=== PATIENT | male | born 1985 | race Caucasian/White ===

== ENCOUNTER 2017-04-25 22:10 | Emergency (ER) | payer OTHER ==
[~2017-04-25] VITALS: Ht 190.5 cm; Wt 172.4 kg
[2017-04-25] MEDS ORDERED: RX-ALBUTEROL INHALER (PROAIR) 8 GM IH STA (23:46)
[2017-04-25] MEDS ORDERED: RX-DOXYCYCLINE 100 MG (VIBRAMYCIN) TAB PPK#2 PO STA (23:46)
[2017-04-26] MEDS ORDERED: cefTRIAXone 1 GM (ROCEPHIN) VIAL IM ONE
[2017-04-26] MEDS ORDERED: LIDOCAINE 1% INJ 20 ML (XYLOCAINE) VIAL INJ ONE
[2017-04-26] MEDS ORDERED: predniSONE 20 MG TAB PO ONE
[2017-04-26] MEDS ORDERED: PRD20T PO (00:02)
[2017-04-26] MEDS ORDERED: MINO100C2 PO (00:02)
--- NOTE | 2017-04-26 00:13 | ED Cough/URI ---
General Chief Complaint: Cough/Cold/Flu Symptoms Stated Complaint: TROUBLE BREATHING;COUGH Nursing Triage Note: C/o cough, chills x 3 weeks Source: patient Exam Limitations: no limitations History of Present Illness Time seen by provider: 23:20 Initial Comments PATIENT PRESENTS TO THE ED WITH C/O COUGH, CONGESTION, NASAL CONGESTION, GREEN NASAL DRAINAGE, AND MALAISE. DOES HAVE OCCASIONAL SOA AND WHEEZING. STATES WHEN HE WAS YOUNGER HE DID HAVE ASTHMA, BUT HAS NOT HAD TO USE AN INHALER FOR " A REALLY LONG TIME." Timing/Duration: constant, other (3 WK ONSET) Severity/Quality: productive cough (ALTERNATES CLEAR AND GREEN ) Prior Episodes/Possible Cause: no prior episodes Modifying Factors: Worse With Coughing Allergies and Home Medications Allergies Coded Allergies: No Known Drug Allergies (Unverified , 04/25/17) Home Medications Minocycline HCl 100 Mg Capsule, 100 MG PO BID, #14 Ref 0 Prescribed by: ANGLE GARSIA on 04/26/17 0002 Prednisone 20 Mg Tab, 40 MG PO DAILY, #10 Ref 0 Prescribed by: ANGLE GARSIA on 04/26/17 0002 Constitutional: No chills, No fever, malaise EENTM: see HPI, nose congestion, No ear discharge, No ear pain, No mouth pain, No throat pain, No throat swelling Respiratory: cough, No dyspnea on exertion, No orthopnea, phlegm, short of breath, No stridor, wheezing Cardiovascular: no symptoms reported Gastrointestinal: no symptoms reported Genitourinary: no symptoms reported Musculoskeletal: other (GENERALIZED BODYACHES) Skin: no symptoms reported Psychiatric/Neurological: No Symptoms Reported All Other Systems Reviewed Negative Unless Noted: Yes (Negative excepted noted.) Past Qinotlb-Pvjoki-Rmludb Hx Patient Social History Alcohol Use: Occasionally Uses Alcohol Beverage of Choice: Beer Recreational Drug Use: No Smoking Status: Current Everyday Smoker Type Used: Cigarettes 2nd Hand Smoke Exposure: No Recent Foreign Travel: No Contact w/Someone Who Travel: No Recent Infectious Disease Expo: No Recent Hopitalizations: No Physical Abuse: No Sexual Abuse: No Mistreated: No Fear: No Immunizations Up To Date Tetanus Booster (TDap): Less than 5yrs Seasonal Allergies Seasonal Allergies: No Surgeries History of Surgeries: No Respiratory History of Respiratory Disorde: Yes Respiratory Disorders: Asthma Cardiovascular History of Cardiac Disorders: Yes Cardiac Disorders: High Cholesterol, Hypertension Neurological History of Neurological Disord: No Reproductive System Sexually Transmitted Disease: No HIV/AIDS: No Genitourinary History of Genitourinary Disor: No Gastrointestinal History of Gastrointestinal Di: No Musculoskeletal History of Musculoskeletal Dis: No Endocrine History of Endocrine Disorders: Yes Endocrine Disorders: Hypothyroidsim, Diabetes, Non-Insulin dep HEENT History of HEENT Disorders: No Cancer History of Cancer: No Psychosocial Suicide Risk Score: 1 Integumentary History of Skin or Integumenta: No Reviewed Nursing Assessment Reviewed/Agree w Nursing PMH: Yes Family Medical History Significant Family History: No Pertinent Family Hx Physical Exam Vital Signs Vital Sign - Last 12Hours 04/25/17 22:30 Temp 98.0 Pulse 112 Resp 20 B/P (MAP) 154/ Pulse Ox 95 O2 Delivery Room Air Capillary Refill : Less Than 3 Seconds General Appearance: WD/WN, no apparent distress HEENT: PERRL/EOMI, pharynx normal Neck: non-tender, full range of motion, supple, normal inspection Respiratory: no respiratory distress, no accessory muscle use, decreased breath sounds, wheezing (FAINT EXPIRATORY WHEEZING BILATERAL BASES) Cardiovascular: normal peripheral pulses, regular rate, rhythm, no murmur Gastrointestinal: normal bowel sounds, non tender, soft, no organomegaly Extremities: normal capillary refill Neurologic/Psychiatric: alert, normal mood/affect, oriented x 3 Skin: normal color, warm/dry Progress/Results/Core Measures Suspected Sepsis Recent Fever Within 48 Hours: No Infection Criteria Present: Suspected New Infection New/Unexplained Altered Menta: No Sepsis Screen: No Definite Risk Sepsis Diagnosis: SIRS Temperature:98.0 Pulse: 112 Respiratory Rate: 20 Blood Pressure 154 / Mean: Results/Orders My Orders Orders - ANGLE GARSIA Chest Pa/Lat (2 View) (04/25/17 23:20) Ceftriaxone Injection (Rocephin Injectio (04/26/17 00:00) Lidocaine 1% Injection (Xylocaine 1% Inj (04/26/17 00:00) Rx-Doxycycline Tablet (Rx-Vibramycin Tab (04/25/17 23:46) Prednisone Tablet (Deltasone Tablet) (04/26/17 00:00) Rx-Albuterol Inhaler (Rx-Proair) (04/25/17 23:46) Medications Given in ED Current Medications Medications Dose Ordered Sig/Arina Route Start Time Stop Time Status Last Admin Dose Admin Ceftriaxone Sodium 1,000 mg ONCE ONCE IM 04/26/17 00:00 04/26/17 00:01 DC 04/26/17 00:04 1,000 MG Lidocaine HCl 2.1 ml ONCE ONCE INJ 04/26/17 00:00 04/26/17 00:01 DC 04/26/17 00:04 2.1 ML Prednisone 40 mg ONCE ONCE PO 04/26/17 00:00 04/26/17 00:01 DC 04/26/17 00:04 40 MG Vital Signs/I&O Vital Sign - Last 12Hours 04/25/17 04/26/17 22:30 00:20 Temp 98.0 Pulse 112 88 Resp 20 18 B/P (MAP) 154/ Pulse Ox 95 96 O2 Delivery Room Air Room Air Capillary Refill : Less Than 3 Seconds Diagnostic Imaging Diagonstic Imaging: Xray Plain Films/CT/US/NM/MRI: chest Comments no acute cardiopulmonary findings. Reviewed: Reviewed by Me (reviewed with Dr. Leigh) Departure Communication (Admissions) Progress Notes Diagnostic findings discussed with the patient. Plan for discharge to home with oral prednisone, doxycycline, and an albuterol inhaler. Impression Impression: Primary Impression: Acute bronchitis Qualified Codes: J20.9 - Acute bronchitis, unspecified Disposition: HOME, SELF-CARE Condition: Improved Departure-Patient Inst. Decision time for Depature: 23:55 Patient Instructions: Acute Bronchitis, Adult (DC) Add. Discharge Instructions: All discharge instructions reviewed with patient and/or family. Voiced understanding. MEDICATIONS DIRECTED. TYLENOL ES OVER THE COUNTER DIRECTED FOR PAIN OR FEVER. MOTRIN 800 MG BY MOUTH EVERY 8 HOUR NEEDED FOR PAIN OR FEVER. COOL HUMIDIFIER. SALINE NASAL SPRAY AND AFRIN NASAL SPRAY OVER THE COUNTER DIRECTED FOR NASAL CONGESTION. [facility] IF NO IMPROVEMENT IN SYMPTOMS. RETURN TO THE EMERGENCY DEPARTMENT FOR WORSENED SYMPTOMS OR ANY OTHER CONCERNS. Scripts Prednisone (Prednisone) 20 Mg Tab 40 MG PO DAILY, #10 TAB 0 Refills Prov: ANGLE GARSIA 04/26/17 Minocycline HCl (Minocycline HCl) 100 Mg Capsule 100 MG PO BID, #14 CAP 0 Refills Prov: ANGLE GARSIA 04/26/17 Work/School Note: Local Medical Staff Listing ANGLE GARSIA Apr 26, 2017 00:13
[2017-04-26 00:20] VITALS: BP 142/89
--- NOTE | 2017-04-26 06:32 | Diagnostic Imaging Report ---
Indication: Shortness of breath PA and lateral chest There is a hiatal hernia. Heart size and pulmonary vascular normal. Lungs are clear. There are no effusions or pneumothoraces. Impression: Hiatal hernia. No acute abnormalities in the chest. Dictated by: Dictated on workstation # [id number]
== END 2017-04-26 00:20 | disposition home or self-care (01) ==
LOC: ER 22:13
DX: J20.9 Acute bronchitis, unspecified (principal); E03.9 Hypothyroidism, unspecified; E11.9 Type 2 diabetes mellitus without complications; E78.00 Pure hypercholesterolemia, unspecified; I10 Essential (primary) hypertension; J45.909 Unspecified asthma, uncomplicated; F17.210 Nicotine dependence, cigarettes, uncomplicated
CPT/HCPCS: 71046; 99284

== ENCOUNTER 2020-03-24 17:03 | Emergency (ER) | payer SELFPAY ==
[~2020-03-24] VITALS: Ht 187 cm; Wt 158.0 kg
[~2020-03-24 17:03] MED LIST: MINO100C5 PO; PRD20T PO
[2020-03-24 17:50] VITALS: BP 160/104
--- NOTE | 2020-03-24 18:07 | ED EENT ---
History of Present Illness General Chief Complaint: Ear Problems Stated Complaint: R EAR INFECTION Nursing Triage Note: Pt reports R ear pain x5 days. Pt sees [facility] for treatment and was placed on antibiotic drops. Pt reports increased pain and swelling, stating drops aren't reaching ear. Source: patient Exam Limitations: no limitations History of Present Illness Date Seen by Provider: Mar 24, 2020 Time Seen by Provider: 18:01 Initial Comments Patient presents ER by private conveyance with chief complaint of swelling pain and mild discharge from his right ear canal. He was seen a couple days ago and this started at the [facility] and started on some drops but no orals. He says he does n ot feel the drops are making it any better. He's not having any fevers nausea vomiting chills or pain in his jaw or teeth. Last dose of Aleve was 12 hours prior. Allergies and Home Medications Allergies Coded Allergies: No Known Drug Allergies (Unverified , 04/25/17) Home Medications Minocycline HCl 100 Mg Capsule, 100 MG PO BID Prescribed by: ANGLE GARSIA on 04/26/17 0002 Prednisone 20 Mg Tab, 40 MG PO DAILY Prescribed by: ANGLE GARSIA on 04/26/17 0002 Patient Home Medication List Home Medication List Reviewed: Yes Review of Systems Review of Systems Constitutional: No chills, No diaphoresis Eyes: Denies Blindness, Denies Blurred Vision Ears: Denies Dizziness, Denies Pain Nose: denies clots, denies congestion Mouth: denies clots, denies pain, denies swelling Throat: denies pain, denies swelling Respiratory: No cough, No phlegm Cardiovascular: No chest pain, No palpitations Gastrointestinal: No abdominal pain, No nausea, No vomiting All Other Systems Reviewed Negative Unless Noted: Yes Past [place]-Sshcjp-Sdjakf Hx Patient Social History Alcohol Use: Past History Number of Drinks Today: AA Alcohol Beverage of Choice: Beer Recreational Drug Use: No Smoking Status: Current Everyday Smoker Type Used: Cigarettes 2nd Hand Smoke Exposure: No Recent Foreign Travel: No Contact w/Someone Who Travel: No Recent Infectious Disease Expo: No Recent Hopitalizations: No Immunizations Up To Date Tetanus Booster (TDap): Less than 5yrs Seasonal Allergies Seasonal Allergies: No Past Medical History Surgeries: No Respiratory: Yes Asthma Cardiac: Yes High Cholesterol, Hypertension Neurological: No Sexually Transmitted Disease: No HIV/AIDS: No Genitourinary: No Gastrointestinal: No Musculoskeletal: No Endocrine: Yes (grave's disease) Hypothyroidsim, Diabetes, Non-Insulin dep HEENT: No Cancer: No Integumentary: No Family Medical History No Pertinent Family Hx Physical Exam Vital Signs Vital Signs - First Documented 03/24/20 17:50 Temp 36.9 Pulse 115 Resp 20 B/P (MAP) 160/104 (122) O2 Delivery Room Air Height, Weight, BMI Height: 6'3.00" Weight: 380lbs. oz. [id number]; 45.00 BMI Method:Stated General Appearance: WD/WN, mild distress Eyes: bilateral eye normal inspection, bilateral eye PERRL, bilateral eye EOMI Ears: right ear discharge (serous thin small amount), right ear erythema, right ear swelling, right ear tenderness; left ear auricle normal, left ear canal normal, left ear TM normal Progress/Results/Core Measures Results/Orders My Orders Orders - DALIA TATUM Ketorolac Injection (Toradol Injection) (03/24/20 18:15) Methylprednisolone Sod Succ (Solu-Medrol (03/24/20 18:15) Vital Signs/I&O 03/24/20 17:50 Temp 36.9 Pulse 115 Resp 20 B/P (MAP) 160/104 (122) O2 Delivery Room Air Blood Pressure Mean: 122 Progress Progress Note : Time: 18:07 Progress Note An ear wick was placed by nursing. We'll give him a shot of Solu-Medrol and a dose of Augmentin. We'll put him on 10 days Augmentin. Departure Impression Primary Impression: Otitis externa Qualified Codes: H60.311 - Diffuse otitis externa, right ear Additional Impression: Cellulitis Qualified Codes: L03.811 - Cellulitis of head [any part, except face] Disposition: 01 HOME, SELF-CARE Condition: Stable Departure-Patient Inst. Decision time for Depature: 18:09 Referrals: NO,LOCAL PHYSICIAN (PCP) Primary Care Physician Patient Instructions: Outer Ear Infection (DC) Add. Discharge Instructions: Treatment drink plenty of fluids. Tylenol 1000 mg every 8 hours as necessary for pain. Naproxen 1 or 2 tablets twice a day for pain. Warm compresses applied directly over the ear can be helpful for pain. Continue to use the eardrops as prescribed. therapist occupational the Augmentin and take one tablet twice a day with food to completion. Please take it for the full 10 days as the risk of re-infection is great. All discharge instructions reviewed with patient and/or family. Voiced understanding. Scripts Amoxicillin/Potassium Clav (Augmentin 875-125 Tablet) 1 Each Tablet 1 EACH PO BID for 10 Days, #20 TAB 0 Refills Prov: DALIA TATUM 03/24/20 DALIA TATUM Mar 24, 2020 18:07
[2020-03-24] MEDS ORDERED: AMOX-358 PO (18:10)
[2020-03-24] MEDS ORDERED: KETOROLAC 60 MG/2 ML VIAL IM ONE (18:15)
[2020-03-24] MEDS ORDERED: methylPREDNISolone 125 MG (Solu-MEDROL) VIAL IM ONE (18:15)
[2020-03-24] MEDS ORDERED: AUGMENTIN 875 MG TAB (AMOXICILLIN/CLAVULANATE) PO ONE (18:15)
== END 2020-03-24 18:24 | disposition home or self-care (01) ==
LOC: EDUNIT# 17:03 → ER 17:05
DX: H60.91 Unspecified otitis externa, right ear (principal); L03.90 Cellulitis, unspecified; J45.909 Unspecified asthma, uncomplicated; F17.210 Nicotine dependence, cigarettes, uncomplicated; Z79.52 Long term (current) use of systemic steroids
CPT/HCPCS: 99284

== ENCOUNTER 2020-04-15 13:51 | Emergency (ER) | payer SELFPAY ==
[~2020-04-15] VITALS: Ht 190 cm; Wt 158.0 kg
[~2020-04-15 13:51] MED LIST changes: +AMOX-358 PO
[2020-04-15] MEDS ORDERED: LACTATED RINGERS 1,000 ML IV ONE (14:14)
--- NOTE | 2020-04-15 14:22 | ED General ---
General Stated Complaint: N/V,SOB,WEAKNESS Source of Information: Patient Exam Limitations: No Limitations History of Present Illness Date Seen by Provider: Apr 15, 2020 Time Seen by Provider: 14:20 Initial Comments To ER with reports of nausea vomiting, intermittent shortness of breath, general malaise for about 4 days. He is a diabetic but states that he has not been compliant with checking his sugars. He believes his symptoms could be related to either his blood sugar or Covid. He denies fevers or chills. Is currently on Augmentin for an ear infection. History of hypertension hyperlipidemia and smokes greater than 1 pack/day. Primary care is [facility] in [place]. Timing/Duration: 1-2 Days Severity: Moderate Associated Systoms: Cough, Nausea/Vomiting, Shortness of Air, Weakness Allergies and Home Medications Allergies Coded Allergies: No Known Drug Allergies (Unverified , 04/25/17) Home Medications Amoxicillin/Potassium Clav 1 Each Tablet, 1 EACH PO BID Prescribed by: DALIA TATUM on 03/24/201809 Minocycline HCl 100 Mg Capsule, 100 MG PO BID Prescribed by: ANGLE GARSIA on 04/26/17 0002 Prednisone 20 Mg Tab, 40 MG PO DAILY Prescribed by: ANGLE GARSIA on 04/26/17 0002 Patient Home Medication List Home Medication List Reviewed: Yes Review of Systems Review of Systems Constitutional: see HPI, malaise, weakness EENTM: see HPI Respiratory: see HPI Cardiovascular: no symptoms reported Genitourinary: no symptoms reported Musculoskeletal: no symptoms reported Skin: no symptoms reported Psychiatric/Neurological: No Symptoms Reported Past Ptuq[place]-Dsywzb-Wkhdgs Hx Patient Social History Alcohol Beverage of Choice: Beer Type Used: Cigarettes 2nd Hand Smoke Exposure: No Recent Hopitalizations: No Immunizations Up To Date Tetanus Booster (TDap): Less than 5yrs Seasonal Allergies Seasonal Allergies: No Past Medical History Surgeries: No Respiratory: Yes Asthma Cardiac: Yes High Cholesterol, Hypertension Neurological: No Sexually Transmitted Disease: No HIV/AIDS: No Genitourinary: No Gastrointestinal: No Musculoskeletal: No Endocrine: Yes (grave's disease) Hypothyroidsim, Diabetes, Non-Insulin dep HEENT: No Cancer: No Integumentary: No Family Medical History No Pertinent Family Hx Physical Exam Vital Signs Vital Signs - First Documented 04/15/20 14:00 Temp 36.6 Pulse 129 Resp 22 B/P (MAP) 147/100 (116) Pulse Ox 99 O2 Delivery Room Air Capillary Refill : Height, Weight, BMI Height: 6'3.00" Weight: 380lbs. oz. 172.099104bh; 45.00 BMI Method:Stated General Appearance: No Apparent Distress (Tachypneic on arrival with respiratory rate of about 24 but oxygen saturation 99% on room air after ambulating in from the parking lot), Obese Eyes: Bilateral Eye Normal Inspection, Bilateral Eye PERRL Neck: Full Range of Motion, Normal Inspection Respiratory: No Accessory Muscle Use, No Respiratory Distress Cardiovascular: Normal Peripheral Pulses, Tachycardia (Rate of 120 sinus on nuclear monitoring technician) Gastrointestinal: Non Tender, Soft Extremity: Normal Capillary Refill, Normal Inspection Neurologic/Psychiatric: Alert, Oriented x3 Skin: Normal Color, Warm/Dry Progress/Results/Core Measures Suspected Sepsis SIRS Temperature: Pulse: Respiratory Rate: Laboratory Tests 04/15/20 14:09: White Blood Count 13.1H Blood Pressure / Mean: Laboratory Tests 04/15/20 14:09: Creatinine 0.94, Platelet Count 288, Total Bilirubin 0.5 Results/Orders Lab Results Laboratory Tests Test 04/15/20 14:09 Range/Units White Blood Count 13.1 H 4.3-11.0 10^3/uL Red Blood Count 6.29 H 4.35-5.85 10^6/uL Hemoglobin 17.7 13.3-17.7 G/DL Hematocrit 53 40-54 % Mean Corpuscular Volume 84 80-99 FL Mean Corpuscular Hemoglobin 28 25-34 PG Mean Corpuscular Hemoglobin Concent 34 32-36 G/DL Red Cell Distribution Width 14.1 10.0-14.5 % Platelet Count 288 130-400 10^3/uL Mean Platelet Volume 13.0 H 7.4-10.4 FL Neutrophils (%) (Auto) 67 42-75 % Lymphocytes (%) (Auto) 20 12-44 % Monocytes (%) (Auto) 5 0-12 % Eosinophils (%) (Auto) 8 0-10 % Basophils (%) (Auto) 1 0-10 % Neutrophils # (Auto) 8.7 H 1.8-7.8 X 10^3 Lymphocytes # (Auto) 2.7 1.0-4.0 X 10^3 Monocytes # (Auto) 0.6 0.0-1.0 X 10^3 Eosinophils # (Auto) 1.0 H 0.0-0.3 10^3/uL Basophils # (Auto) 0.1 0.0-0.1 10^3/uL D-Dimer 0.28 0.00-0.49 UG/ML Sodium Level 136 135-145 MMOL/L Potassium Level 4.7 3.6-5.0 MMOL/L Chloride Level 96 L 98-107 MMOL/L Carbon Dioxide Level 28 21-32 MMOL/L Anion Gap 12 5-14 MMOL/L Blood Urea Nitrogen 10 7-18 MG/DL Creatinine 0.94 0.60-1.30 MG/DL Estimat Glomerular Filtration Rate > 60 BUN/Creatinine Ratio 11 Glucose Level 385 H 70-105 MG/DL Calcium Level 9.7 8.5-10.1 MG/DL Corrected Calcium 9.5 8.5-10.1 MG/DL Total Bilirubin 0.5 0.1-1.0 MG/DL Aspartate Amino Transf (AST/SGOT) 16 5-34 U/L Alanine Aminotransferase (ALT/SGPT) 28 0-55 U/L Alkaline Phosphatase 99 40-136 U/L C-Reactive Protein High Sensitivity 1.45 H 0.00-0.50 MG/DL Total Protein 8.0 6.4-8.2 GM/DL Albumin 4.2 3.2-4.5 GM/DL Beta-Hydroxybutyrate (Chem panel) 0.20 0.00-0.27 MMOL/L My Orders Orders - HENRI FRAUSTO APRN Lactated Ringers (Lr 1000 Ml Iv Solution (04/15/20 14:30) Cbc With Automated Diff (04/15/20 14:16) Comprehensive Metabolic Panel (04/15/20 14:16) Hs C Reactive Protein (04/15/20 14:16) Fibrin Degradation Products (04/15/20 14:16) Beta Hydroxybutyrate (04/15/20 14:16) Chest 1 View, Ap/Pa Only (04/15/20 14:16) Covid 19 Inhouse Test (04/15/20 14:16) Procalcitonin (Pct) (04/15/20 14:19) Coronavirus Sars-Cov-2 So 2018 (04/15/20 14:49) Vital Signs/I&O 04/15/20 14:00 Temp 36.6 Pulse 129 Resp 22 B/P (MAP) 147/100 (116) Pulse Ox 99 O2 Delivery Room Air Capillary Refill : Departure Impression Primary Impression: Viral syndrome Disposition: HOME, SELF-CARE Condition: Stable Departure-Patient Inst. Decision time for Depature: 15:05 Referrals: NO,LOCAL PHYSICIAN (PCP/Family) Primary Care Physician Patient Instructions: Viral Syndrome (DC) Add. Discharge Instructions: 1. Go home and stay quarantined until the send out Covid test comes back tomorrow. This could be any number of other viruses however. Return to ER for any worsening. Follow-up with your primary care provider next week. HENRI FRAUSTO CONSULTING MARINE ENGINEER Apr 15, 2020 14:22
[2020-04-15] MEDS ORDERED: LACTATED RINGERS 1,000 ML IV SCH (14:30)
[2020-04-15 14:32] LABS: HEMATOCRIT 53 % (40-54); HEMOGLOBIN 17.7 G/DL (13.3-17.7); MEAN CORPUSCULAR HEMOGLOBIN 28 PG (25-34); MEAN CORPUSCULAR VOLUME 84 FL (80-99); WHITE BLOOD COUNT 13.1 10^3/uL (4.3-11.0)
[2020-04-15 14:33] LABS: ALBUMIN 4.2 GM/DL (3.2-4.5); BASOPHILS % (AUTO) 1 % (0-10); CHLORIDE 96 MMOL/L (98-107); EOSINOPHILS % (AUTO) 8 % (0-10); LYMPHOCYTES % (AUTO) 20 % (12-44); MEAN CORPUSCULAR HGB CONC 34 G/DL (32-36); MONOCYTES % (AUTO) 5 % (0-12); NEUTROPHILS % (AUTO) 67 % (42-75); PLATELET COUNT 288 10^3/uL (130-400); POTASSIUM 4.7 MMOL/L (3.6-5.0); SODIUM 136 MMOL/L (135-145)
[2020-04-15 14:34] LABS: BASOPHILS # (AUTO) 0.1 10^3/uL (0.0-0.1); CALCIUM 9.7 MG/DL (8.5-10.1); LYMPHOCYTES # (AUTO) 2.7 X 10^3 (1.0-4.0); MONOCYTES # (AUTO) 0.6 X 10^3 (0.0-1.0); NEUTROPHILS # (AUTO) 8.7 X 10^3 (1.8-7.8)
[2020-04-15 14:35] LABS: GLUCOSE 385 MG/DL (70-105)
[2020-04-15 14:37] LABS: BILIRUBIN,TOTAL 0.5 MG/DL (0.1-1.0); CARBON DIOXIDE 28 MMOL/L (21-32)
[2020-04-15 14:39] LABS: ALKALINE PHOSPHATASE 99 U/L (40-136); CREATININE SERUM 0.94 MG/DL (0.60-1.30); GFR ESTIMATED > 60
[2020-04-15 14:40] LABS: BUN/CREATININE RATIO 11
[2020-04-15 14:42] LABS: ALANINE AMINOTRANSFERASE 28 U/L (0-55)
--- NOTE | 2020-04-15 15:22 | Diagnostic Imaging Report ---
INDICATION: Cough COMPARISON: 04/25/2017. FINDINGS: Single frontal view of the chest demonstrates normal heart size and pulmonary vascularity. The lungs are well aerated and clear. No large pleural effusion or pneumothorax is seen. The visualized osseous structures show no acute abnormalities. IMPRESSION: No acute cardiopulmonary process. Dictated by: Dictated on workstation # [id number]
[2020-04-15 15:24] VITALS: BP 154/100
== END 2020-04-15 15:27 | disposition home or self-care (01) ==
LOC: EDUNIT# 13:51 → ER 13:52
DX: B34.9 Viral infection, unspecified (principal); J45.909 Unspecified asthma, uncomplicated; E66.9 Obesity, unspecified; Z20.828 Contact with and (suspected) exposure to other viral communicable diseases; Z68.42 Body mass index [BMI] 45.0-49.9, adult; Z87.891 Personal history of nicotine dependence; Z79.52 Long term (current) use of systemic steroids
CPT/HCPCS: 71045; 80053; 82010; 82962; 84145; 85025; 85379; 86141; 99282; U0002; 36415; 87635